=== PATIENT | female | born 1980 | race Caucasian/White ===

== ENCOUNTER 2017-12-30 11:20 | Emergency (ER) | payer OTHER ==
[~2017-12-30] VITALS: Ht 170.2 cm; Wt 96.2 kg
[~2017-12-30 11:20] MED LIST: ACETAMINOPHEN500 MG PO; CELEBREX100 MG PO; DETROL; GABAPENTIN300 MG PO; LANTUS100 UNITS/ SQ; METFORMIN HCL1000 MG PO; METFORMIN HCL500 MG
[2017-12-30] MEDS ORDERED: ALBUTEROL SULF 0.083% NEB SOLN 3 ML NEB NEB STA (11:22)
[2017-12-30] MEDS ORDERED: IPRATROPIUM BROMIDE 0.02% 2.5 ML NEB NEB STA (11:22)
[2017-12-30 11:54] LABS: BASOPHILS % 0.2 % (0.0-1.0); HEMATOCRIT 42.4 % (34.2-44.1); HEMOGLOBIN 14.6 g/dL (12.0-16.0); LYMPHOCYTES # (AUTO) 0.8 (1.0-3.2); LYMPHOCYTES % 14.9 % (18.0-39.1); MEAN CORPUSCULAR HEMOGLOBIN 33.2 pg (28-32); MEAN CORPUSCULAR HGB CONC 34.4 g/dL (31-35); MEAN CORPUSCULAR VOLUME 96.4 fL (81-99); MONOCYTES # (AUTO) 0.3 (0.2-0.8); MONOCYTES % 5.2 % (4.4-11.3); NEUTROPHILS # (AUTO) 4.1 (2.1-6.9); NEUTROPHILS % 79.5 % (38.7-80.0); PLATELET COUNT 189 x10e3/uL (140-360); RED CELL DISTRIBUTION WIDTH 13.6 % (11.7-14.4)
[2017-12-30 12:10] LABS: INFLUENZAE A&B ANTIGEN (RAPID) NEGATIVE (NEGATIVE)
[2017-12-30 12:12] LABS: B-TYPE NATRIURETIC PEPTIDE2 37.7 pg/mL (0-100)
[2017-12-30 12:13] LABS: ALANINE AMINOTRANSFERASE 28 IU/L (0-55); ALBUMIN 3.7 g/dL (3.5-5.0); ALBUMIN/GLOBULIN RATIO 1.1 (0.8-2.0); ALKALINE PHOSPHATASE 68 IU/L (40-150); ANION GAP 14.4 mmol/L (8-16); BLOOD UREA NITROGEN 16 mg/dL (7-26); BUN/CREATININE RATIO 19 (6-25); CALCIUM 8.7 mg/dL (8.4-10.2); CARBON DIOXIDE 21 mmol/L (22-29); CHLORIDE 104 mmol/L (98-107); CREATINE KINASE 48 IU/L (29-168); CREATININE, SERUM 0.84 mg/dL (0.57-1.11); EST GLOMERULAR FILTRATION RATE > 60 ML/MIN (60-); GLUCOSE 149 mg/dL (74-118); LIPASE 6 U/L (8-78); POTASSIUM 3.4 mmol/L (3.5-5.1); SODIUM 136 mmol/L (136-145)
[2017-12-30 12:15] LABS: STREPTOCOCCUS GRP A ANTIGEN NEGATIVE (NEGATIVE)
[2017-12-30 13:41] LABS: BILIRUBIN,URINE NEGATIVE (NEGATIVE); CLARITY,URINE HAZY (CLEAR); COLOR,URINE YELLOW (YELLOW); KETONES,URINE NEGATIVE (NEGATIVE); LEUKOCYTE ESTERASE ,URINE NEGATIVE (NEGATIVE); NITRITE,URINE NEGATIVE (NEGATIVE); PROTEIN,URINE DIPSTICK NEGATIVE (NEGATIVE); URINE UROBILINOGEN 0.2 mg/dL (0.2 - 1)
[2017-12-30 13:53] LABS: BACTERIA,URINE FEW /HPF; EPITHELIAL CELLS,URINE FEW /LPF; RBC,URINE 0-5 /HPF (0-5); WBC,URINE (MAN) 0-5 /HPF (0-5)
--- NOTE | 2017-12-30 14:12 | Diagnostic Imaging Report ---
EXAM: CT Chest WITH contrast 12/30/2017 11:22 AM INDICATION: \S\r/o pe \[id number] \S\[id number] COMPARISON: None TECHNIQUE: Chest was scanned utilizing a multidetector helical scanner from the lung apex through the level of the adrenal glands without administration of IV contrast. Coronal and sagittal reformations were obtained. PE protocol was performed. IV CONTRAST: 100 mL of Isovue-370 COMPLICATIONS: None RADIATION DOSE: Total DLP: 484.8 mGy*cm Estimated effective dose: (DLP x 0.014 x size factor) mSv CTDIvol has been reviewed. It is below the limits set by the Radiation Protocol Committee (RPC). FINDINGS: LINES/ TUBES: None. LUNGS AND AIRWAYS: Scattered pulmonary nodules, centrilobular nodules, and groundglass opacities. Largest pulmonary nodule measures 6 mm in the left lower lobe (series 3 image 71). Mosaic attenuation of the lung likely related to air trapping. Mild bronchial wall thickening. No filling defect to the level of the subsegmental pulmonary arteries. Main pulmonary artery measures 2.9 cm in diameter. Ascending aorta measures 2.8 cm in diameter PLEURA: The pleural spaces are clear. HEART AND MEDIASTINUM: The thyroid gland is normal. Prominent mediastinal nodes measuring up to 0.9 cm, likely reactive No mediastinal, hilar or axillary lymphadenopathy. The heart is normal in size.. There is no pericardial effusion. UPPER ABDOMEN: Unremarkable. BONES: No acute or suspicious osseous lesions. Partially visualized degenerative changes in the lower cervical spine. SOFT TISSUES: Unremarkable. IMPRESSION: 1. No evidence of pulmonary embolus to the level of the subsegmental pulmonary arteries. 2. Scattered pulmonary nodules and groundglass opacities, likely infectious or inflammatory. 3. Air trapping with bronchial wall thickening likely related to bronchitis or reactive airways disease. Signed by: DR. Efrain Benites MD on 12/30/2017 2:09 PM
[2017-12-30] MEDS ORDERED: LEVALBUTEROL HCL SOLN NEBU 0.63 MG/3 ML NEB INH NR (14:45)
[2017-12-30] MEDS ORDERED: METHYLPREDNISOLONE SOD SUCC 125 MG/2ML VIAL IV NR (14:45)
[2017-12-30] MEDS ORDERED: ALBUTEROL SULF 0.083% NEB SOLN 3 ML NEB NEB NR (14:45)
[2017-12-30] MEDS ORDERED: IPRATROPIUM BROMIDE 0.02% 2.5 ML NEB NEB NR (14:50)
[2017-12-30] MEDS ORDERED: CIPRO500 MG PO (15:05)
[2017-12-30] MEDS ORDERED: OMEPRAZOLE40 MG PO (15:05)
[2017-12-30] MEDS ORDERED: SULFAMETHOXAZOLE PO (15:05)
[2017-12-30] MEDS ORDERED: PREDNISONE20 MG PO (15:05)
[2017-12-30] MEDS ORDERED: TRIMETHOPRIM PO (15:05)
[2017-12-30] MEDS ORDERED: MUCINEX DM ER1 EACH PO (15:09)
[2017-12-30] MEDS ORDERED: TUSSIN AC PO (15:09)
[2017-12-30] MEDS ORDERED: VENTOLIN HFA18 GM INH (15:09)
[2017-12-30] MEDS ORDERED: SODIUM CHLORIDE 0.9% 1000ML 1,000 ML IV SCH (16:15)
--- NOTE | 2017-12-30 16:47 | Diagnostic Imaging Report ---
EXAMINATION: CHEST 2 VIEWS INDICATION: \S\ORDER PLACED BY \[id number] \S\[id number] \S\Y COMPARISON: Chest CT 12/30/2017 FINDINGS: PA and lateral views TUBES and LINES: None. LUNGS: Lungs are well inflated. There is no evidence of consolidative pneumonia or pulmonary edema. PLEURA: No pleural effusion or pneumothorax. HEART AND MEDIASTINUM: The cardiomediastinal silhouette is unremarkable. BONES AND SOFT TISSUES: No acute osseous lesion. Soft tissues are unremarkable. UPPER ABDOMEN: No free air under the diaphragm. IMPRESSION: No evidence of consolidative pneumonia. Groundglass opacities and nodular opacities are better seen on same day chest CT 12/30/2017. Signed by: DR. Efrain Benites MD on 12/30/2017 4:43 PM
[2017-12-30] MEDS ORDERED: SODIUM CHLORIDE 0.9% 50ML 50 ML ONE (18:28)
[2017-12-30] MEDS ORDERED: IOPAMIDOL 370 MG/ML 200 ML INFUS..BTL INJ ONE (18:28)
== END 2017-12-30 17:18 | disposition home or self-care (01) ==
LOC: ER 11:20
DX: R06.00 Dyspnea, unspecified (principal); R05 Cough; J20.9 Acute bronchitis, unspecified
CPT/HCPCS: 36415; 71046; 71260; 80053; 81001; 82550; 82553; 83518; 83605; 83690; 83880; 84484; 84702; 85025; 85379; 87070; 87086; 87400; 93005; 94640; 99284; Q9967